=== PATIENT | male | born 1995 | race Caucasian/White ===

== ENCOUNTER 2018-09-19 14:03 | Emergency (ER) | payer BC ==
--- OUTSIDE RECORDS SUMMARY | 2018-09-19 14:15 | XMS REPORT | Continuity of Care Document ---
:1995 External Reference #:[id number] Author Name Mariana Yang M.D. Address [address] [facility] [address] [place] [address] Care Team Providers Name Role Phone Vickie Townsend MD Care Team Information Grill Cook Unavailable Payers Type Date Identification Numbers Payment Provider Subscriber Policy Number: [id number] Jeremy Alexandra PayID: [id number] [address] [address] [place] [address] Advance Directives Description No Information Available Problems Date Description Provider Status Onset: 09/23/2017 Arthralgia of the ankle and/or foot Vickie Townsend MD Active Onset: 09/23/2017 Traumatic injury of common peroneal Vickie Townsend MD Active nerve Onset: 09/23/2017 Peroneal tendinitis, right leg Vickie Townsend MD Active Onset: 08/20/2018 Traumatic wound dehiscence Mariana Yang M.D. Active Family History Date Family Member(s) Problem(s) Comments General Heart Disease General Cancer General Diabetes Father Diabetes Social History Type Date Description Comments Sex Unknown Lives With Mother And Father Lives With Significant Other 08/20/18 Occupation Unemployed Hand [employer] Right-handed Tobacco Use Start: Unknown current cigarette smoker ETOH Use Currently consumes alcohol socially Recreational Drug Use Denies Drug Use Tobacco Use Start: Unknown Patient is a current smoker, smokes every day Smoking Status Reviewed: 08/28/18 Patient is a current smoker, smokes every day Allergies, Adverse Reactions, Alerts Date Description Reaction Status Severity Comments 09/23/2017 Nuts Active Medications Medication Date Status Form Strength Qnty SIG Indications Ordering Provider Clindamycin HCL Active Capsules 300mg D1 tablet Unknown 00 by mouth tid No Active 09/23/19 Hx Unknown Medications 18 - 08/20/19 19 Immunizations Description No Information Available Vital Signs Date Vital Result Comment 09/01/2018 4:08pm BP Systolic 145 mmHg BP Diastolic 87 mmHg Body Temperature 98.7 F Heart Rate 91 /min Respiratory Rate 18 /min Weight 160.38 lb O2 % BldC Oximetry 98 % Pain Level 0 08/20/2018 9:01am BP Systolic 130 mmHg BP Diastolic 86 mmHg Body Temperature 98.2 F Heart Rate 67 /min Respiratory Rate 16 /min Height 65 inches 5'5" Weight 157.38 lb BMI (Body Mass Index) 26.2 kg/m2 BSA (Body Surface Area) 1.79 m2 [place] body weight in kilograms 62 kg O2 % BldC Oximetry 99 % Pain Level 4 Testicle 09/23/2017 10:55am BP Systolic Sitting Right Arm 130 mmHg BP Diastolic Sitting Right Arm 84 mmHg Body Temperature 97.7 F Heart Rate 84 /min Respiratory Rate 20 /min Height 65 inches 5'5" Weight 165.00 lb BMI (Body Mass Index) 27.5 kg/m2 BSA (Body Surface Area) 1.82 m2 [place] body weight in kilograms 62 kg Results Description No Information Available Procedures Date Code Description Status 08/20/2018 64287 Treatment Of Superficial Wound Dehiscence/Packing Completed 08/07/2018 56248 Excision Local Lesion Epididymis Completed 09/23/2017 83797 Radiology, Ankle Complete Completed Encounters Type Date Location Provider Dx Diagnosis Office Visit 09/23/2017 Orthopaedic Office Vickie Townsend, M76.71 Peroneal 10:30a MD tendinitis, right leg M25.571 Pain in right ankle and joints of right foot S84.11xS Inj peroneal nrv at lower leg level, right leg, sequela W14.xxxS Fall from tree, sequela Plan of Treatment Future Appointment(s):09/29/2018 10:30 am - Segundo Calhoun PA at [id number] - Segundo Calhoun, PAT81.30xA Disruption of wound, unspecified, initial encounterComments:Continue to use wound packing. Reviewed the steps. The patient wants to go back to work assist suggested he use a scrotal support and keep a gauze pad in there while working to reduce friction. Callfor his reviewed. Follow-up 4 [id number] Disorder of male genital organs, unspecified
[2018-09-19 15:10] VITALS: BP 136/73
--- NOTE | 2018-09-19 15:21 | UC ---
UC General HPI - HPI Summary HPI Summary: R ear pain since this am. Much worse with cough. Pressure with cough. No fever, injury or drainage. - History of Current Complaint Chief Complaint: UCEar Stated Complaint: RIGHT EAR COMPLAINT Time Seen by Provider: 09/19/18 15:15 Hx Obtained From: Patient Timing: Constant Pain Intensity: 7 Associated Signs & Symptoms: Negative: Fever, Headache - Allergy/Home Medications Allergies/Adverse Reactions: Allergies Allergy/AdvReac Type Severity Reaction Status Date / Time No Known Allergies Allergy Verified 09/19/18 15:09 PMH/Surg Hx/FS Hx/Imm Hx Previously Healthy: Yes - Surgical History Surgical History: Yes Surgery Procedure, Year, and Place: testicle surgery - Social History Alcohol Use: Occasionally Substance Use Type: None Smoking Status (MU): Heavy Every Day Tobacco Smoker Type: Cigarettes - Immunization History Vaccination Up to Date: Yes Review of Systems All Other Systems Reviewed And Are Negative: Yes Constitutional: Positive: Negative Skin: Positive: Negative Eyes: Positive: Negative ENT: Positive: Ear Ache Respiratory: Positive: Negative Cardiovascular: Positive: Negative Gastrointestinal: Positive: Negative Genitourinary: Positive: Negative Motor: Positive: Negative Neurovascular: Positive: Negative Musculoskeletal: Positive: Negative Neurological: Positive: Negative Psychological: Positive: Negative Physical Exam Triage Information Reviewed: Yes Appearance: Well-Appearing Vital Signs: Initial Vital Signs Temp 97.8 F 09/19/18 15:07 Pulse 76 09/19/18 15:07 Resp 18 09/19/18 15:07 BP 136/73 09/19/18 15:07 Pulse Ox 100 09/19/18 15:07 Vital Signs Reviewed: Yes Eyes: Positive: Conjunctiva Clear ENT: Positive: Pharynx normal, TMs normal - L. R slighty pink., Other - No auricular adenopathy or mastoid tenderness. Both canals are clear.. Negative: Nasal congestion, Nasal drainage Neck: Positive: Supple, Nontender, No Lymphadenopathy Respiratory: Positive: Lungs clear, Normal breath sounds Cardiovascular: Positive: RRR, No Murmur Abdomen Description: Positive: Nontender Bowel Sounds: Positive: Present Musculoskeletal: Positive: ROM Intact Neurological: Positive: Alert Psychological: Positive: Age Appropriate Behavior Skin Exam: Normal Skin: Negative: Rashes Course/Dx - Course Course Of Treatment: will tx with decongestant(OTC). will add antibiotic if not improving in 1-2 days or sooner if worse. - Differential Dx - Multi-Symptom Differential Diagnoses: Other - OM, OE, FB. - Diagnoses Provider Diagnosis: Eustachian tube dysfunction, Otitis media Discharge - Sign-Out/Discharge Documenting (check all that apply): Patient Departure All imaging exams completed and their final reports reviewed: No Studies - Discharge Plan Condition: Stable Disposition: HOME Prescriptions: Amoxicillin PO (*) [Amoxicillin 875 MG (*)] 875 mg PO BID 10 Days #20 tab Patient Education Materials: Ear Infection (ED) Referrals: STU Valenzuela [Medical Doctor] - 7 Days Additional Instructions: START AN ORAL DECONGESTANT PER LABEL. IF NOT BETTER IN 1-2 DAYS, START THE ANTIBIOTIC. START THE ANTIBIOTIC SOONER IF EAR IS WORSENING. - Billing Disposition and Condition Condition: STABLE Disposition: Home
== END 2018-09-19 15:32 | disposition home or self-care (01) ==
LOC: UCCORT 14:03
DX: H69.81 Other specified disorders of Eustachian tube, right ear (principal); H66.91 Otitis media, unspecified, right ear; F17.210 Nicotine dependence, cigarettes, uncomplicated
CPT/HCPCS: 99212; G0463